=== PATIENT | female | born 1980 | race Caucasian/White ===

== ENCOUNTER 2016-05-31 18:03 | Emergency (ER) | payer MEDICAID ==
[2016-05-31 18:57] VITALS: BP 112/69
--- NOTE | 2016-05-31 20:37 | ER Document Report ---
ED Extremity Problem, Upper - General Chief Complaint: Arm Problem Stated Complaint: RIGHT ARM RECASTING Mode of Arrival: Ambulatory Information source: Patient Notes: Pt is a 35 year old female who presents to the ER today for "re-casting" after an open wrist fracture surgery on 05-19. SHe states that it is "loose." Dr. Huang performed the surgery. She has an appt with him on the of this month. TRAVEL OUTSIDE OF THE [place] IN LAST 30 DAYS: No - Related Data Allergies/Adverse Reactions: No Known Allergies Allergy (Verified 05/31/16 18:51) Past Medical History - General Information source: Patient - Social History Smoking Status: Current Every Day Smoker Chew tobacco use (# tins/day): No Frequency of alcohol use: None Drug Abuse: None Family History: Reviewed & Not Pertinent Patient has suicidal ideation: No Patient has homicidal ideation: No - Immunizations Hx Diphtheria, Pertussis, Tetanus Vaccination: Yes Review of Systems - Review of Systems Constitutional: No symptoms reported EENT: No symptoms reported Cardiovascular: No symptoms reported Respiratory: No symptoms reported Gastrointestinal: No symptoms reported Genitourinary: No symptoms reported Female Genitourinary: No symptoms reported Musculoskeletal: See HPI Skin: No symptoms reported Hematologic/Lymphatic: No symptoms reported Neurological/Psychological: No symptoms reported Physical Exam - Vital signs Vitals: Temp Pulse Resp BP Pulse Ox 98.4 F 108 H 18 112/69 98 05/31/16 18:53 05/31/16 18:53 05/31/16 18:53 05/31/16 18:53 05/31/16 18:53 - Notes Notes: PHYSICAL EXAMINATION: GENERAL: Well-appearing and in no acute distress. HEAD: Atraumatic, normocephalic. EYES: Pupils equal round and reactive to light, extraocular movements intact, sclera anicteric, conjunctiva are normal. NECK: Normal range of motion, supple without lymphadenopathy LUNGS: CTAB and equal. No wheezes rales or rhonchi. HEART: Regular rate and rhythm without murmurs EXTREMITIES: half cast/half splint material on right forearm/wrist and past the elbow, appears intact, normal capillary refill and sensation to distal extremity , no pitting edema. No cyanosis. NEUROLOGICAL: Cranial nerves grossly intact. Normal sensory/motor exams. PSYCH: Normal mood, normal affect. SKIN: Warm, Dry, normal turgor, no rashes or lesions noted Course - Re-evaluation Re-evalutation: 05/31/16 21:40 Pt's casting and splinting material NOT removed due to half cast being placed by Dr. Huang. Kei wrap was tightened and pt felt better about it. - Vital Signs Vital signs: Temp Pulse Resp BP Pulse Ox 98.4 F 108 H 18 112/69 98 05/31/16 18:53 05/31/16 18:53 05/31/16 18:53 05/31/16 18:53 05/31/16 18:53 Procedures - Immobilization Right Time completed: 20:30 Pre-Proc Neuro Vasc Exam: Normal Immobilizer type: Kei wrap Performed by: PCT Post-Proc Neuro Vasc Exam: Normal Alignment checked and good: Yes Discharge - Discharge Clinical Impression: Fracture dislocation of wrist Condition: Stable Disposition: HOME, SELF-CARE Additional Instructions: Dr. Huang's new office [facility] [address] [place] [address] [address] [place] [address] phone: [phone]
[2016-05-31] MEDS ORDERED: OXYCODONE-ACETAMINOPHEN 5-325 MG TABLET PO ONE (20:50)
== END 2016-05-31 21:16 | disposition home or self-care (01) ==
LOC: ER 18:03
DX: S62.101D Fracture of unspecified carpal bone, right wrist, subsequent encounter for fracture with routine healing (principal); X58.XXXD Exposure to other specified factors, subsequent encounter; F17.210 Nicotine dependence, cigarettes, uncomplicated
CPT/HCPCS: 99282